=== PATIENT | female | born 1980 | race Caucasian/White ===

== ENCOUNTER 2016-07-11 08:05 | Emergency (ER) | payer OTHER ==
[2016-07-11] MEDS ORDERED: NS 0.9% 1000 ML* 2,000 ML IV ONE (09:47)
[2016-07-11] MEDS ORDERED: Ketorolac INJ* 30 MG/ML 1 ML VIAL IV PUSH ONE (09:47)
[2016-07-11 11:01] LABS: Hematocrit 40 % (35-47); Hemoglobin 13.4 g/dl (12.0-16.0); Mean Corpuscular HGB Conc 34 g/dl (31-36); Mean Corpuscular Hemoglobin 31 pg (27-31); Mean Corpuscular Volume 92 fL (80-97); Mean Platelet Volume 9 um3 (7.4-10.4); Red Blood Count 4.31 10^6/ul (4.0-5.4); Red Cell Distribution Width 13 % (10.5-15); White Blood Count 7.6 10^3/ul (3.5-10.8)
[2016-07-11 11:22] LABS: ALT 16 U/L (7-52); Albumin 3.9 g/dL (3.2-5.2); Alkaline Phosphatase 65 U/L (34-104); BUN/Creatinine Ratio 18.8 (8-20); Blood Urea Nitrogen 15 mg/dL (6-24); CO2 Carbon Dioxide 24 mmol/L (22-32); Calcium 8.7 mg/dL (8.6-10.3); Chloride 102 mmol/L (101-111); EGFR African American 105.6 (>60); EGFR Non-African American 82.1 (>60); Glucose 110 mg/dL (70-100); Sodium 133 mmol/L (133-145); Total Protein 6.9 g/dL (6.4-8.9)
[2016-07-11] MEDS ORDERED: Ondansetron INJ* 2 MG/ML VIAL IV ONE (13:07)
[2016-07-11] MEDS ORDERED: NS 0.9% 1000 ML* 1,000 ML IV ONE (13:08)
[2016-07-11] MEDS ORDERED: Ondansetron INJ* 2 MG/ML VIAL ONE ×2 (13:09→13:13)
[2016-07-11 15:46] LABS: Urine Bacteria Absent (Absent); Urine Bilirubin Negative (Negative); Urine Glucose Negative (Negative); Urine Nitrite Negative (Negative)
[2016-07-11] MEDS ORDERED: Meclizine TAB* 12.5 MG PO ONE (18:19)
[2016-07-11] MEDS ORDERED: Meclizine TAB* 12.5 MG ONE (18:20)
[2016-07-11 18:50] VITALS: BP 119/63
--- NOTE | 2016-08-08 10:40 | ED ---
Mehdi Manzo Matthew, scribed for Mansoor Yañez MD on 07/11/16 at 0952 . Influenza-Like Illness - HPI Summary HPI Summary: A 35 y/o female presents to the ED with influenza like symptoms for the past 3 days. Associated symptoms include dizziness, vomiting - 2x today, nausea, headache - 3 days, mild coughing, mild chest pain, rhinorrhea, diarrhea, lower back pain, fever - since 3 days ago, and body aches. The patient denies sore throat, abdominal pain, and urinary symptoms. The patient is currently on Bactrim and was seen by her PCP yesterday. The patient does not smoke or drink alcohol. Her nausea worsens laying down. - History of Current Complaint Chief Complaint: EDNauseaVomitDiarrh Time Seen by Provider: 07/11/16 08:22 Hx Obtained From: Patient Onset/Duration: Gradual Onset, Lasting Days - 3, Still Present Severity: Moderate Associated Signs & Symptoms: Fever, Myalgia, Cough, Nasal Congestion, Headache, Vomiting, Diarrhea - Allergy/Home Medications Allergies/Adverse Reactions: Allergies Allergy/AdvReac Type Severity Reaction Status Date / Time Amoxicillin Allergy Rash Verified 04/05/14 16:07 Doxycycline Allergy Vomiting Verified 04/05/14 16:07 Home Medications: Home Medications Ibuprofen TAB* [Motrin TAB* 800 MG] 800 mg PO TID PRN 07/11/16 [History Confirmed 07/11/16] Sulfamethox/Trimethoprim DS* [Bactrim DS 800/160 TAB*] 1 tab PO BID 07/11/16 [ History Confirmed 07/11/16] PMH/Surg Hx/FS Hx/Imm Hx Cardiovascular History: Reports: Hx Angina Denies: Hx Coronary Artery Disease, Hx Hypercholesterolemia, Hx Hypertension , Hx Myocardial Infarction, Hx Valvular Heart Disease Respiratory History: Denies: Hx Asthma, Hx Chronic Obstructive Pulmonary Disease (COPD) Infectious Disease History: No Infectious Disease History: Denies: Traveled Outside the [place] in Last 30 Days - Family History Known Family History: Positive: Cardiac Disease Family History: Father of [place] in mid 50's; mother has angina - Social History Alcohol Use: None Substance Use Type: Reports: None Smoking Status (MU): Never Smoked Tobacco Review of Systems Positive: Fever - since 3 days ago. Negative: Chills Eyes: Negative Negative: Erythema Positive: Nasal Discharge - Rhinorrhea. Negative: Sore Throat Cardiovascular: Negative Negative: Chest Pain Positive: Cough - mild Positive: Vomiting - 2x today, Diarrhea, Nausea. Negative: Abdominal Pain Genitourinary: Negative Negative: dysuria, hematuria Positive: Myalgia - body aches, lower back pain. Negative: Edema - pedal Skin: Negative Negative: Rash Positive: Headache - 3 days Psychological: Normal All Other Systems Reviewed And Are Negative: Yes Physical Exam Triage Information Reviewed: Yes Vital Signs On Initial Exam: Initial Vitals Temp Pulse Resp BP Pulse Ox 99.6 F 107 20 121/72 98 07/11/16 08:06 07/11/16 08:06 07/11/16 08:06 07/11/16 08:06 07/11/16 08:06 Vital Signs Reviewed: Yes Appearance: Positive: No Pain Distress, Well-Nourished Skin: Positive: Warm, Dry Head/Face: Positive: Other - Normocephalic; Atraumatic Eyes: Positive: Conjunctiva Clear Neck: Positive: No Lymphadenopathy, Other: - Full ROM; No JVD Respiratory/Lung Sounds: Positive: Other - Normal Effort; No Respiratory Distress. Negative: Rales, Stridor, Tracheal Deviation, Wheezes Cardiovascular: Positive: RRR, Other - Rhythm regular, rate normal, Heart sounds normal; Intact distal pulses; The pedal pulses are 2+ and symmetric. Radial pulses are 2+ and symmetric. Negative: Murmur Abdomen Description: Positive: Nontender, Soft, CVA Tenderness (R), CVA Tenderness (L), Other: - No Rebound. Negative: Distended, Guarding Bowel Sounds: Positive: Present Musculoskeletal: Negative: Edema Left, Edema Right Neurological: Positive: Alert, Oriented to Person Place, Time Psychiatric: Positive: Affect/Mood Appropriate Diagnostics - Vital Signs Vital Signs Temp Pulse Resp BP Pulse Ox 07/11/16 08:33 99.6 F 107 20 124/72 98 07/11/16 08:06 99.6 F 107 20 121/72 98 - Laboratory Result Diagrams: 07/11/16 10:49 07/11/16 10:30 Lab Statement: Any lab studies that have been ordered have been reviewed, and results considered in the medical decision making process. Re-Evaluation - Re-Evaluation First Eval Re-Evaluation Time: 17:23 Comment: No PO intake since arrival and she hasnt vomited since the Zofran was administered. Second Eval Re-Evaluation Time: 17:50 Change: Improved Comment: The patient is tolerating PO intake. Flu Symptom Course/Dx - Course Assessment/Plan: A 35 y/o female presents to the ED with influenza like symptoms for the past 3 days. Associated symptoms include dizziness, vomiting - 2x today, nausea, headache - 3 days, mild coughing, mild chest pain, rhinorrhea, diarrhea, lower back pain, fever - since 3 days ago, and body aches. The patient denies sore throat, abdominal pain, and urinary symptoms. Labs were reviewed. In the ED course, the patient was given Toradol, Antivert, 3L IV fluids, and Zofran. On re-evaluation the patient tolerated PO. She will be discharged home with PCP follow-up. - Diagnoses Provider Diagnoses: Vertigo, Gastroenteritis Discharge - Discharge Plan Condition: Stable Disposition: HOME Prescriptions: Meclizine TAB* [Antivert 12.5 TAB*] 25 mg PO Q8H #10 tab Ondansetron ODT TAB* [Zofran 4 MG Odt TAB*] 4 mg PO Q8H PRN #12 tab.odt PRN Reason: Pain Scale 6-10 Patient Education Materials: Meclizine (By mouth), Ondansetron (By mouth), Vertigo (ED), Gastroenteritis (ED) Forms: *Work Release Referrals: Session Marlo BRANDON [Primary Care Provider] - 07/14/16 Additional Instructions: Please follow-up with your primary care physician on Thursday. RETURN TO THE EMERGENCY DEPARTMENT FOR CHANGING OR WORSENING SYMPTOMS The documentation as recorded by the Mehdi velazquez Matthew accurately reflects the service I personally performed and the decisions made by me, Mansoor Yañez MD.
== END 2016-07-11 18:48 | disposition home or self-care (01) ==
LOC: ED 08:05
DX: R42 Dizziness and giddiness (principal); K52.9 Noninfective gastroenteritis and colitis, unspecified; R50.9 Fever, unspecified; M79.1 Myalgia; R05 Cough; R09.81 Nasal congestion; R51 Headache; R11.10 Vomiting, unspecified; R19.7 Diarrhea, unspecified
CPT/HCPCS: 36415; 80053; 81003; 81015; 85025; 87502; 96374; 96375; 99284; A9270-GY; J1885; J2405

== ENCOUNTER 2016-07-13 07:43 | Emergency (ER) | payer OTHER ==
[2016-07-13] MEDS ORDERED: Azithromycin TAB* 250 MG PO ONE (09:35)
--- NOTE | 2016-07-13 09:44 | ED ---
Throat Pain/Nasal Congestion - HPI Summary HPI Summary: 35 y/o female with no PMH presents with 7 days of sinus pain, headache, ear pain , sore throat, coughing, and mild fever. Seen by PCP last week, dx'd with sinus infection, started on Bactrim. After 2 doses, patient had N/V, d'cd medication without notifing PCP. SEen in ER for same symptoms with N/V. Dx'd with GI complaint. Currently no N/V, minimal dizziness with going from sitting to standing, headache throbbing in nature, located frontal and behind ears b/l, no neck pain/ stiffness. - History of Current Complaint Chief Complaint: EDFluSymptoms Time Seen by Provider: 07/13/16 09:17 Hx Obtained From: Patient, Family/Scene Shifter - mother Onset/Duration: Gradual Onset, Lasting Days, Worse Since - daily Severity: Moderate Associated Signs And Symptoms: Positive: Sinus Discomfort, Nasal Discharge - green/ yellow discharge Cough: Productive - Allergies/Home Medications Allergies/Adverse Reactions: Allergies Allergy/AdvReac Type Severity Reaction Status Date / Time Amoxicillin Allergy Rash Verified 07/13/16 07:45 Doxycycline Allergy Vomiting Verified 07/13/16 07:45 PMH/Surg Hx/FS Hx/Imm Hx Previously Healthy: Yes Cardiovascular History: Reports: Hx Angina Denies: Hx Coronary Artery Disease, Hx Hypercholesterolemia, Hx Hypertension , Hx Myocardial Infarction, Hx Valvular Heart Disease Respiratory History: Denies: Hx Asthma, Hx Chronic Obstructive Pulmonary Disease (COPD) Infectious Disease History: No Infectious Disease History: Denies: Traveled Outside the [place] in Last 30 Days - Family History Known Family History: Positive: None, Cardiac Disease Family History: Father of [place] in mid 50's; mother has angina - Social History Alcohol Use: None Substance Use Type: Reports: None Smoking Status (MU): Never Smoked Tobacco Review of Systems Positive: Fever, Chills, Fatigue Eyes: Negative Positive: Sore Throat, Ear Ache, Nasal Discharge Cardiovascular: Negative Positive: Cough Gastrointestinal: Negative Genitourinary: Negative Positive: Myalgia - generalized Skin: Negative Positive: Headache, Weakness Psychological: Normal All Other Systems Reviewed And Are Negative: Yes Physical Exam Triage Information Reviewed: Yes Vital Signs On Initial Exam: Initial Vitals Temp Pulse Resp BP Pulse Ox 100.6 F 101 20 112/70 98 07/13/16 07:45 07/13/16 07:45 07/13/16 07:45 07/13/16 07:45 07/13/16 07:45 Vital Signs Reviewed: Yes Appearance: Positive: Well-Nourished, Ill-Appearing - mild, Pain Distress - mild Skin: Positive: Warm, Skin Color Reflects Adequate Perfusion Head/Face: Positive: Normal Head/Face Inspection Eyes: Positive: EOMI, KUNAL, Conjunctiva Clear ENT: Positive: Pharyngeal erythema - mild erythema, no exudates, no swelling noted., TM bulging, TM dull, TM red - b/l bulging TMs with air/ fluids levels, purulent fluid behind TMs b/l, tm intact, erythema around TM, ear canal grossly normal b/l, + mastoid tenderness mild with deep palpation, no swelling, erythema noted. Dental: Positive: Cervical Lymphadenopathy - submandb. NO posterior LAD Neck: Positive: Supple, Nontender, Enlarged Nodes @ - subman Respiratory/Lung Sounds: Positive: Clear to Auscultation, Breath Sounds Present Cardiovascular: Positive: Normal, Tachycardia - mild, S1, S2 Abdomen Description: Positive: Nontender, Soft Psychiatric: Positive: Normal AVPU Assessment: Alert - Joanne Coma Scale Best Eye Response: 4 - Spontaneous Best Motor Response: 6 - Obeys Commands Best Verbal Response: 5 - Oriented Diagnostics - Vital Signs Vital Signs Temp Pulse Resp BP Pulse Ox 07/13/16 07:47 100.6 F 101 20 112/70 97 07/13/16 07:45 100.6 F 101 20 112/70 98 - Laboratory Lab Statement: Any lab studies that have been ordered have been reviewed, and results considered in the medical decision making process. EENT Course/Dx - Course Course Of Treatment: AOM and sinusitis, started on ABX, stressed importance to stay on ABX or call if develops symptoms while on them, follow up with PCP within 1 week for re-eval. Work note given, one dose [place] for pain while in ER. Mother present, agrees with pain. Dicussed mild tachy- encouraged drinking water which patient states able to do as opposed to starting IV for fluids, patient in agreement. - Differential Diagnoses Differential Diagnoses: Dental Abscess, Epiglottitis, Gingivitis, Otitis Externa , Otitis Media, Sinusitis, Tonsilitis, URI/Bronchitis - Diagnoses Provider Diagnoses: Sinusitis, Acute otitis media, bilateral Discharge - Discharge Plan Condition: Good Disposition: HOME Prescriptions: Azithromycin TAB* [Zithromax TAB (Z-GIAN) 250 mg #6 tabs] 250 mg PO DAILY #4 tab Ibuprofen TAB* [Motrin TAB* 800 MG] 800 mg PO TID PRN #30 dose PRN Reason: Pain/Inflammation Patient Education Materials: Sinusitis (ED) Forms: *Work Release Referrals: Marlo Carpenter [Primary Care Provider] - Additional Instructions: - Increase fluid intake - FOllow up with primary physician within 1-2 weeks - return to ER with increased pain, worse headache, neck pain, or increasing fever - Motrin/ Ibuprofen for pain - Azithromycin antibiotic given, take as directed
[2016-07-13] MEDS ORDERED: HYDROcodone/ACETAMIN 5-325 MG* 1 TAB PO ONE (10:09)
[2016-07-13 10:26] VITALS: BP 130/79
== END 2016-07-13 10:23 | disposition home or self-care (01) ==
LOC: ED 07:43
DX: J32.9 Chronic sinusitis, unspecified (principal); H66.93 Otitis media, unspecified, bilateral
CPT/HCPCS: 99282; A9270-GY

== ENCOUNTER 2016-10-23 13:07 | Emergency (ER) | payer OTHER ==
[2016-10-23] MEDS ORDERED: SCOP/HYOS/ATR/PB(NF) 10 ML UDC PO ONE (13:56)
--- NOTE | 2016-10-23 14:21 | RAD ---
Indication: 2 days burning chest pain. Comparison: February 22, 2016 Technique: Upright AP 1400 hours Report: Clear lungs and pleural spaces. Negative for pneumothorax. The heart, pulmonary vasculature, and mediastinal contours are unremarkable. Negative for free air beneath the diaphragm. Unremarkable osseous structures and soft tissue contours. IMPRESSION: No evidence for acute intrathoracic disease.
[2016-10-23 14:30] LABS: Hematocrit 41 % (35-47); Hemoglobin 13.9 g/dl (12.0-16.0); Mean Corpuscular HGB Conc 34 g/dl (31-36); Mean Corpuscular Hemoglobin 32 pg (27-31); Mean Corpuscular Volume 95 fL (80-97); Mean Platelet Volume 9 um3 (7.4-10.4); Red Blood Count 4.33 10^6/ul (4.0-5.4); Red Cell Distribution Width 13 % (10.5-15); White Blood Count 5.8 10^3/ul (3.5-10.8)
[2016-10-23] MEDS ORDERED: Lidocaine 2% VISCOUS* 15 ML UDC PO ONE (14:39)
[2016-10-23] MEDS ORDERED: Al Hydrox/Mg Hydrox/Simet LIQ* 30 ML UDC PO ONE (14:39)
[2016-10-23 14:57] LABS: Albumin 4.1 g/dL (3.2-5.2); BUN/Creatinine Ratio 16.7 (8-20); Calcium 9.2 mg/dL (8.6-10.3); EGFR African American 108.1 (>60); Globulin 3.3 g/dL (2-4); Potassium 3.9 mmol/L (3.5-5.0); Total Bilirubin 0.5 mg/dL (0.2-1.0); Total Protein 7.4 g/dL (6.4-8.9)
--- NOTE | 2016-10-23 15:28 | ED ---
HPI Chest Pain - HPI Summary HPI Summary: Patient presents with chest pain x 2 days which has been worsening. She describes the pain as burning in the epigastric area and radiates superiorly to the throat. She states she also has associated burning in the throat and denies any other radiation of the pain. The pain does not radiate to the arm or jaw or through to the back. She has never had pain like this before. She was worked up last year for chest pain, but states this feels different and there was no significant findings at that time. She is tearful on examination and states she is concerned over a cardiac issue since her father of an [place] at a young age of 56. Patient is obese, but has no other comorbidities of note. Denies other family history of cardiac problems. Denies personal history of cardiac issues. She states pain is intermittent and worse after eating. She notes to NSAID use daily x 3 weeks for ankle pain. Denies SOB, chest pressure, diaphoresis, fever, nausea, chills or sweats. She is very anxious on arrival to the ED. - History of Current Complaint Chief Complaint: EDChestPainROMI Time Seen by Provider: 10/23/16 13:18 Hx Obtained From: Patient Onset/Duration: Started Days Ago Timing: Intermittent Initial Severity: Moderate Current Severity: Moderate Pain Intensity: 6 Pain Scale Used: 0-10 Numeric Chest Pain Location: Discrete at:, Mid Sternal Chest Pain Radiates: Yes Chest Pain Radiates To:: Neck, Epigastric Character: Burning Aggravating Factor(s): Position, Recumbent Position Alleviating Factor(s): Nothing Associated Signs and Symptoms: Positive: Chest Pain Related History: Obesity - Risk Factors Pulmonary Embolism Risk Factors: Negative TAD Risk Factors: Negative AMI/ACS Risk Factors: Obesity, Family History - Allergy/Home Medications Allergies/Adverse Reactions: Allergies Allergy/AdvReac Type Severity Reaction Status Date / Time Amoxicillin Allergy Rash Verified 10/23/16 13:13 Doxycycline Allergy Vomiting Verified 10/23/16 13:13 PMH/Surg Hx/FS Hx/Imm Hx Previously Healthy: Yes Cardiovascular History: Reports: Hx Angina Denies: Hx Coronary Artery Disease, Hx Hypercholesterolemia, Hx Hypertension , Hx Myocardial Infarction, Hx Valvular Heart Disease Respiratory History: Denies: Hx Asthma, Hx Chronic Obstructive Pulmonary Disease (COPD) - Immunization History Hx Pertussis Vaccination: No Immunizations Up to Date: Unable to Obtain/Confirm Infectious Disease History: No Infectious Disease History: Denies: Traveled Outside the [place] in Last 30 Days - Family History Known Family History: Positive: None, Cardiac Disease Family History: Father of [place] in mid 50's; mother has angina - Social History Occupation: Employed Full-time Lives: With Family Alcohol Use: None Hx Substance Use: No Substance Use Type: Reports: None Hx Tobacco Use: No Smoking Status (MU): Never Smoked Tobacco Review of Systems Constitutional: Negative Eyes: Negative Positive: Chest Pain Respiratory: Negative Gastrointestinal: Negative Positive: no symptoms reported, see HPI Musculoskeletal: Negative Skin: Negative Neurological: Negative Positive: Anxious All Other Systems Reviewed And Are Negative: Yes Physical Exam Triage Information Reviewed: Yes Vital Signs On Initial Exam: Initial Vitals Temp Pulse Resp BP Pulse Ox 98.1 F 85 16 151/76 97 10/23/16 13:13 10/23/16 13:13 10/23/16 13:13 10/23/16 13:13 10/23/16 13:13 Vital Signs Reviewed: Yes Appearance: Positive: Well-Appearing, Well-Nourished Skin: Positive: Warm, Skin Color Reflects Adequate Perfusion Head/Face: Positive: Normal Head/Face Inspection Eyes: Positive: EOMI, KUNAL, Conjunctiva Clear Neck: Positive: Supple, No Lymphadenopathy Respiratory/Lung Sounds: Positive: Clear to Auscultation, Breath Sounds Present Cardiovascular: Positive: Normal, RRR, Pulses are Symmetrical in both Upper and Lower Extremities Musculoskeletal: Positive: Normal, Strength/ROM Intact Neurological: Positive: Sensory/Motor Intact, Alert, Oriented to Person Place, Time Psychiatric: Positive: Normal AVPU Assessment: Alert - Joanne Coma Scale Best Eye Response: 4 - Spontaneous Best Motor Response: 6 - Obeys Commands Best Verbal Response: 5 - Oriented Coma Scale Total: 15 Diagnostics - Vital Signs Vital Signs Temp Pulse Resp BP Pulse Ox 10/23/16 14:31 100 10/23/16 14:00 70 16 118/68 99 10/23/16 13:48 98.1 F 85 16 151/76 98 10/23/16 13:30 77 15 116/74 99 10/23/16 13:29 78 14 98 10/23/16 13:27 93/68 10/23/16 13:13 98.1 F 85 16 151/76 97 - Laboratory Lab Results: Lab Results 0810/23/16 10/23/16 Range/Units 14:10 14:10 14:10 WBC 5.8 (3.5-10.8) 10^3/ul RBC 4.33 (4.0-5.4) 10^6/ul Hgb 13.9 (12.0-16.0) g/dl Hct 41 (35-47) % MCV 95 (80-97) fL MCH 32 H (27-31) pg MCHC 34 (31-36) g/dl RDW 13 (10.5-15) % Plt Count 179 (150-450) 10^3/ul MPV 9 (7.4-10.4) um3 Neut % (Auto) 68.2 (38-83) % Lymph % (Auto) 19.8 L (25-47) % [place] % (Auto) 8.3 (1-9) % Eos % (Auto) 3.2 (0-6) % Baso % (Auto) 0.5 (0-2) % Absolute Neuts (auto) 3.9 (1.5-7.7) 10^3/ul Absolute Lymphs (auto) 1.1 (1.0-4.8) 10^3/ul Absolute Monos (auto) 0.5 (0-0.8) 10^3/ul Absolute Eos (auto) 0.2 (0-0.6) 10^3/ul Absolute Basos (auto) 0 (0-0.2) 10^3/ul Absolute Nucleated RBC 0.01 10^3/ul Nucleated RBC % 0.1 Sodium 136 (133-145) mmol/L Potassium 3.9 (3.5-5.0) mmol/L Chloride 103 (101-111) mmol/L Carbon Dioxide 28 (22-32) mmol/L Anion Gap 5 (2-11) mmol/L BUN 13 (6-24) mg/dL Creatinine 0.78 (0.51-0.95) mg/dL Est GFR ( Amer) 108.1 (>60) Est GFR (Non-Af Amer) 84.0 (>60) BUN/Creatinine Ratio 16.7 (8-20) Glucose 95 (70-100) mg/dL Lactic Acid 0.7 (0.5-2.0) mmol/L Calcium 9.2 (8.6-10.3) mg/dL Total Bilirubin 0.50 (0.2-1.0) mg/dL AST 14 (13-39) U/L ALT 13 (7-52) U/L Alkaline Phosphatase 65 (34-104) U/L CK-MB (CK-2) 3.2 (0.6-6.3) ng/mL Myoglobin 33.8 (14.3-65.8) ng/mL Troponin I 0.00 (<0.04) ng/mL Total Protein 7.4 (6.4-8.9) g/dL Albumin 4.1 (3.2-5.2) g/dL Globulin 3.3 (2-4) g/dL Albumin/Globulin Ratio 1.2 (1-3) Result Diagrams: 10/23/16 14:10 10/23/16 14:10 Lab Statement: Any lab studies that have been ordered have been reviewed, and results considered in the medical decision making process. Chest Pain Course/Dx - Course Course Of Treatment: Labs drawn. Trop 0.00. Chest xray negative. EKG shows normal sinus rhythm. Pain improved with GI cocktail in ED. She notes to significant use of NSAIDS and pain is worse after eating. Possibly a gastric ulcer d/t pain immediately after eating. Will treat according to protocol for GERD/gastric ulcer with 4 weeks 40mg omeprazole. Discontinue NSAIDS. Medications were reveiwed with patient. Encouarged to follow up with PCP or return to ED for worsening symptoms. Return precautions given. Patient understands and agrees with plan. Ok for discharge. D/t patient symptoms and 0.00 trop, unlikely cardiac pathology. She is encouraged to follow up with DR. Riggs if symptoms continue. - Chest Pain Differential Diagnosis/HQI/PQRI: ACS, Angina, Chest Wall, Other: - NSAID use - Diagnoses Provider Diagnoses: Acute peptic ulcer Discharge - Discharge Plan Condition: Stable Disposition: HOME Prescriptions: Al Hydrox/Mg Hydrox/Simet LIQ* [Maalox Plus*] 30 ml PO Q4H PRN #360 udc PRN Reason: Pain Omeprazole 40 mg PO DAILY #30 cap Patient Education Materials: Diet for Stomach Ulcers and Gastritis (ED), Gastroesophageal Reflux Disease (ED) Referrals: Session Marlo BRANDON [Primary Care Provider] - David Riggs MD [Medical Doctor] - Additional Instructions: Follow up with Dr. Riggs as needed Discontinue NSAIDS Omeprazole daily for 30 days Take this medication at least 30 minutes before a meal Maalox for breakthrough GERD symptoms If anything becomes worse, return to the ED
[2016-10-23 15:57] VITALS: BP 112/68
== END 2016-10-23 15:56 | disposition home or self-care (01) ==
LOC: ED 13:07
DX: K27.3 Acute peptic ulcer, site unspecified, without hemorrhage or perforation (principal); R07.9 Chest pain, unspecified; F41.9 Anxiety disorder, unspecified
CPT/HCPCS: 36415; 71010; 80053; 82553; 83605; 83874; 84484; 85025; 93005; 99283; A9270-GY

== ENCOUNTER 2016-10-28 19:33 | Emergency (ER) | payer OTHER ==
[2016-10-28] MEDS ORDERED: Ondansetron INJ* 2 MG/ML VIAL IV ONE (20:44)
[2016-10-28] MEDS ORDERED: Morphine INJ* 2 MG/ML 1 ML SYRINGE IV ONE (20:44)
[2016-10-28] MEDS ORDERED: NS 0.9% 1000 ML* 1,000 ML IV ONE ×2 (20:44→22:14)
[2016-10-28 20:56] LABS: Hematocrit 49 % (35-47); Hemoglobin 16.3 g/dl (12.0-16.0); Mean Corpuscular HGB Conc 34 g/dl (31-36); Mean Corpuscular Hemoglobin 32 pg (27-31); Mean Corpuscular Volume 94 fL (80-97); Mean Platelet Volume 9 um3 (7.4-10.4); Red Blood Count 5.15 10^6/ul (4.0-5.4); Red Cell Distribution Width 13 % (10.5-15); White Blood Count 14.7 10^3/ul (3.5-10.8)
--- NOTE | 2016-10-28 21:05 | ED ---
Raz Manzo SooYoung, scribed for Sree Fan MD on 10/28/16 at 2043 . GI/ HPI - HPI Summary HPI Summary: A 36 y/o F presents to ED with known UTI with c/o possible allergic reaction to Bactrim. Pt saw her PCP yesterday, dx: UTI from UA and was given Bactrim. She took a dose of Bactrim this AM and immediately had n/v, SOB. She called PCP who recommended she take Benadryl and switched her to Azithromycin. She states she is unsure if she has an allergen to Sulfa drugs. PCP is BRIAN Zhao. - History of Current Complaint Chief Complaint: EDNauseaVomitDiarrh Time Seen by Provider: 10/28/16 20:39 Stated Complaint: POSS MEDICATION REACTION-DX UTI,WORSENING SYMPTOMS Hx Obtained From: Patient, Family/Service Desk Associate - Onset/Duration: Started Hours Ago, Still Present Timing: Constant Severity: Moderate Current Severity: Moderate Pain Intensity: 9 - out of 10 Associated Signs and Symptoms: Positive: Nausea, Vomiting, UTI Symptoms - known UTI, Other: - pos: SOB - Allergy/Home Medications Allergies/Adverse Reactions: Allergies Allergy/AdvReac Type Severity Reaction Status Date / Time Amoxicillin Allergy Rash Verified 10/23/16 13:13 Doxycycline Allergy Vomiting Verified 10/23/16 13:13 Sulfamethoxazole Allergy Shortness Verified 10/28/16 19:40 w/Trimethoprim of Breath [From Bactrim] PMH/Surg Hx/FS Hx/Imm Hx Previously Healthy: No Cardiovascular History: Reports: Hx Angina Denies: Hx Coronary Artery Disease, Hx Hypercholesterolemia, Hx Hypertension , Hx Myocardial Infarction, Hx Valvular Heart Disease Respiratory History: Denies: Hx Asthma, Hx Chronic Obstructive Pulmonary Disease (COPD) Infectious Disease History: No Infectious Disease History: Denies: Traveled Outside the [place] in Last 30 Days - Family History Known Family History: Positive: Cardiac Disease Family History: Father of [place] in mid 50's; mother has angina - Social History Occupation: Unemployed - HOMEMAKER Lives: With Family Alcohol Use: None Hx Substance Use: No Substance Use Type: Reports: None Hx Tobacco Use: No Smoking Status (MU): Never Smoked Tobacco Review of Systems Positive: Shortness Of Breath Positive: Vomiting, Nausea Positive: other - pos: known UTI All Other Systems Reviewed And Are Negative: Yes Physical Exam Triage Information Reviewed: Yes Vital Signs On Initial Exam: Initial Vitals Temp Pulse Resp BP Pulse Ox 97.9 F 116 18 103/58 93 10/28/16 19:35 10/28/16 19:35 10/28/16 19:35 10/28/16 19:35 10/28/16 19:35 Vital Signs Reviewed: Yes Appearance: Positive: Pain Distress - mild discomfort, Obese Skin: Positive: Warm Head/Face: Positive: Normal Head/Face Inspection Eyes: Positive: KUNAL ENT: Positive: Hearing grossly normal Neck: Positive: Supple Respiratory/Lung Sounds: Positive: Breath Sounds Present Cardiovascular: Positive: RRR Abdomen Description: Positive: No Organomegaly, Soft, Other: - mild diffuse an= bd tenderness. Negative: CVA Tenderness (R), CVA Tenderness (L), Distended, Guarding Bowel Sounds: Positive: Present Musculoskeletal: Positive: Strength/ROM Intact Neurological: Positive: Alert, Oriented to Person Place, Time, Normal Gait Psychiatric: Positive: Affect/Mood Appropriate - [place] Coma Scale Coma Scale Total: 15 Diagnostics - Vital Signs Vital Signs Temp Pulse Resp BP Pulse Ox 10/28/16 20:26 112 14 95 10/28/16 20:25 87/56 10/28/16 20:24 98.1 F 104 14 87/56 96 10/28/16 19:35 97.9 F 116 18 103/58 93 - Laboratory Lab Results: Lab Results 10/28/16 Range/Units 20:40 WBC 14.7 H (3.5-10.8) 10^3/ul RBC 5.15 (4.0-5.4) 10^6/ul Hgb 16.3 H (12.0-16.0) g/dl Hct 49 H (35-47) % MCV 94 (80-97) fL MCH 32 H (27-31) pg MCHC 34 (31-36) g/dl RDW 13 (10.5-15) % Plt Count 226 (150-450) 10^3/ul MPV 9 (7.4-10.4) um3 Neut % (Auto) 90.5 H (38-83) % Lymph % (Auto) 2.3 L (25-47) % [place] % (Auto) 4.2 (1-9) % Eos % (Auto) 2.9 (0-6) % Baso % (Auto) 0.1 (0-2) % Absolute Neuts (auto) 13.3 H (1.5-7.7) 10^3/ul Absolute Lymphs (auto) 0.3 L (1.0-4.8) 10^3/ul Absolute Monos (auto) 0.6 (0-0.8) 10^3/ul Absolute Eos (auto) 0.4 (0-0.6) 10^3/ul Absolute Basos (auto) 0 (0-0.2) 10^3/ul Absolute Nucleated RBC 0.01 10^3/ul Nucleated RBC % 0.1 Result Diagrams: 10/28/16 20:40 10/28/16 20:40 Lab Statement: Any lab studies that have been ordered have been reviewed, and results considered in the medical decision making process. Re-Evaluation - Re-Evaluation 1 Re-Evaluation Time: 00:51 Change: Improved Comment: Discussing results and dispo with pt. Pt voiced understanding. GIGU Course/Dx - Course Course Of Treatment: Pt is a 36 y/o F presenting with known UTI with c/o possible allergic reaction to Bactrim. Pt saw her PCP yesterday, dx: UTI from UA and was given Bactrim. She took a dose of Bactrim and immediately had n/v, SOB. She called PCP who recommended she take Benadryl and switched her to Azithromycin. She states she is unsure if she has an allergen to Sulfa drugs. PCP is BRIAN Zhao. Pt given fluids, Morphine, Zofran, Reglan, Levaquin in ED. Lactic acid is 2.2. CRP is WNL. Glucose is elevated. UA results show 2+ protein, 1+ ketones, 1+ leukocyte esterase, 3+ WBC, 1+ bacteria, specific gravity is 1.032, hyaline casts present, ascorbic acid present, squamous epithelia present. Will D/C home with Levaquin to f/u with PCP. - Diagnoses Provider Diagnoses: UTI (urinary tract infection) Discharge - Discharge Plan Condition: Improved Disposition: HOME Prescriptions: Levofloxacin TAB* [Levaquin TAB*] 250 mg PO DAILY #7 tab Patient Education Materials: Levofloxacin (By mouth), Urinary Tract Infection in Women (ED) Referrals: Session Marlo BRANDON [Primary Care Provider] - 2 Days Additional Instructions: Follow up with your primary care provider in the next two days. Please return to the ED if you experience new or worsening symptoms. The documentation as recorded by the Raz velazquez SooYoung accurately reflects the service I personally performed and the decisions made by me, Sree Fan MD.
[2016-10-28 21:08] LABS: ALT 13 U/L (7-52); AST 12 U/L (13-39); Albumin 3.6 g/dL (3.2-5.2); Alkaline Phosphatase 52 U/L (34-104); Anion Gap 9 mmol/L (2-11); BUN/Creatinine Ratio 14.3 (8-20); Blood Urea Nitrogen 26 mg/dL (6-24); C Reactive Protein < 1.00 mg/L (< 5.00); CO2 Carbon Dioxide 26 mmol/L (22-32); Calcium 8.6 mg/dL (8.6-10.3); Chloride 98 mmol/L (101-111); EGFR African American 40.7 (>60); EGFR Non-African American 31.6 (>60); Globulin 2.8 g/dL (2-4); Glucose 156 mg/dL (70-100); Lipase < 10 U/L (11.0-82.0); Potassium 4.2 mmol/L (3.5-5.0); Sodium 133 mmol/L (133-145); Total Protein 6.4 g/dL (6.4-8.9)
[2016-10-28 21:26] LABS: Magnesium 1.6 mg/dL (1.9-2.7)
[2016-10-28 22:43] LABS: Urine Bacteria 1+ (Absent); Urine Bilirubin Negative (Negative); Urine Glucose Negative (Negative); Urine Nitrite Negative (Negative)
[2016-10-28] MEDS ORDERED: Metoclopramide IV* 5 MG/ML 2 ML VIAL IV ONE (22:46)
[2016-10-28] MEDS ORDERED: Levofloxacin 250 MG IVPREMX(*) 250 MG/50 ML BAG IVPB ONE (22:46)
[2016-10-29 01:13] VITALS: BP 106/52
== END 2016-10-29 01:19 | disposition home or self-care (01) ==
LOC: ED 19:33
DX: N39.0 Urinary tract infection, site not specified (principal); R11.2 Nausea with vomiting, unspecified; R06.02 Shortness of breath
CPT/HCPCS: 36415; 80053; 81003; 81015; 83605; 83690; 83735; 85025; 86140; 87077; 87086; 96374; 96375; 99283; J1956; J2270; J2405; J2765

== ENCOUNTER 2016-10-29 05:03 | Emergency (ER) | payer OTHER ==
[2016-10-29] MEDS ORDERED: NS 0.9% 1000 ML* 1,000 ML IV ONE (05:57)
[2016-10-29] MEDS ORDERED: Metoclopramide IV* 5 MG/ML 2 ML VIAL IV ONE (05:57)
--- NOTE | 2016-10-29 06:56 | ED ---
Raz Manzo SooYoung, scribed for Sree Fan MD on 10/29/16 at 0557 . Abdominal Pain/Female - HPI Summary HPI Summary: A 36 y/o F presents to ED with known UTI c/o severe abd pain radiating to her back. Pt was seen in ED last night and d/c home with Levaquin to f/u with her PCP. Pt returned because the abd pain is too great. She states she "can't take it anymore." Associated sx: vomiting. - History of Current Complaint Chief Complaint: EDAbdPain Stated Complaint: FEVER/ABD PAIN Hx Obtained From: Patient, Family/Programmer Business - present, Medical Records Onset/Duration: Still Present Timing: Constant Severity Currently: Severe Pain Intensity: 10 Pain Scale Used: 0-10 Numeric Location: Diffuse Radiates: Yes Radiates to: Back Associated Signs and Symptoms: Positive: Vomiting Allergies/Adverse Reactions: Allergies Allergy/AdvReac Type Severity Reaction Status Date / Time Amoxicillin Allergy Rash Verified 10/29/16 07:30 Doxycycline Allergy Vomiting Verified 10/29/16 07:30 Sulfamethoxazole Allergy Shortness Verified 10/29/16 07:30 w/Trimethoprim of Breath [From Bactrim] PMH/Surg Hx/FS Hx/Imm Hx Previously Healthy: No Cardiovascular History: Reports: Hx Angina Denies: Hx Coronary Artery Disease, Hx Hypercholesterolemia, Hx Hypertension , Hx Myocardial Infarction, Hx Valvular Heart Disease Respiratory History: Denies: Hx Asthma, Hx Chronic Obstructive Pulmonary Disease (COPD) Infectious Disease History: No Infectious Disease History: Denies: Traveled Outside the [place] in Last 30 Days - Family History Known Family History: Positive: Cardiac Disease, Renal Disease, Other - neg: [place] Family History: Father of [place] in mid 50's; mother has angina - Social History Occupation: Unemployed Lives: With Family Alcohol Use: None Hx Substance Use: No Substance Use Type: Reports: None Hx Tobacco Use: No Smoking Status (MU): Never Smoked Tobacco Review of Systems Negative: Fever Positive: Abdominal Pain, Vomiting All Other Systems Reviewed And Are Negative: Yes Physical Exam Triage Information Reviewed: Yes Vital Signs On Initial Exam: Initial Vitals Temp Pulse Resp BP Pulse Ox 98 F 103 20 96/62 96 10/29/16 05:05 10/29/16 05:05 10/29/16 05:05 10/29/16 05:05 10/29/16 05:05 Vital Signs Reviewed: Yes Appearance: Positive: Well-Appearing, Pain Distress - mild abd discomfort Skin: Positive: Warm Head/Face: Positive: Normal Head/Face Inspection Eyes: Positive: KUNAL ENT: Positive: Hearing grossly normal Neck: Positive: Supple Respiratory/Lung Sounds: Positive: Breath Sounds Present Cardiovascular: Positive: RRR Abdomen Description: Positive: Soft, Other: - mild diffuse abs tyenserness Bowel Sounds: Positive: Present - [place] Coma Scale Coma Scale Total: 15 Diagnostics - Vital Signs Vital Signs Temp Pulse Resp BP Pulse Ox 10/29/16 05:05 98 F 103 20 96/62 96 - Laboratory Result Diagrams: 10/29/16 09:52 10/29/16 09:52 Lab Statement: Any lab studies that have been ordered have been reviewed, and results considered in the medical decision making process. Abdominal Pain Fem Course/Dx - Course Course Of Treatment: Pt is a 36 y/o F with known UTI c/o severe abd pain. Pt was seen in ED last night and d/c home with Tiffany to f/u with her PCP. Pt returned because the abd pain is too great. She states she "can't take it anymore." Associated sx: vomiting. Pt given Reglan, fluids in ED. Pt is SO to Dr. Singh at shift change pending CT results. - Diagnoses Provider Diagnoses: UTI (urinary tract infection), Cystitis Discharge - Discharge Plan Condition: Stable Disposition: HOME Discharge Disposition Comment: SO to Dr. Singh at shift change, pending CT results Prescriptions: Naproxen TAB* [Naprosyn 250 mg TAB*] 500 mg PO Q8H PRN #20 tab PRN Reason: Pain Ondansetron TAB* [Zofran 4 MG Tab*] 4 mg PO Q6H PRN #10 tab PRN Reason: Vomiting Phenazopyridine TAB* [Pyridium 100 mg TAB*] 100 mg PO TID #9 tab Patient Education Materials: Urinary Tract Infection in Women (ED) Referrals: Session Marlo BRANDON [Primary Care Provider] - 3 Days The documentation as recorded by the Raz velazquez SooYoung accurately reflects the service I personally performed and the decisions made by me, Sree Fan MD.
[2016-10-29] MEDS ORDERED: Morphine INJ* 2 MG/ML 1 ML SYRINGE IV ONE (07:12)
[2016-10-29] MEDS ORDERED: Iodixanol* (CONTRAST) 320 MG/ML 100 ML SDV IV ONE (08:19)
--- NOTE | 2016-10-29 09:36 | RAD ---
CLINICAL HISTORY: Abdominal pain COMPARISON: None TECHNIQUE: Multiple contiguous axial CT scans were obtained of the abdomen and pelvis after the administration of intravenous contrast. Coronal and sagittal multiplanar reformations are submitted for review. Oral contrast was administered. Delayed images were obtained through the abdomen and pelvis. FINDINGS: LUNG BASES: The lung bases are clear. LIVER: The liver measures 21 cm in long axis. BILE DUCTS: There is no intrahepatic or extrahepatic biliary dilatation. GALLBLADDER: The gallbladder is normal, without pericholecystic inflammatory change. PANCREAS: The pancreas is normal, without mass or ductal dilatation. SPLEEN: Normal in size and appearance. UPPER GI TRACT: Evaluation of the gastrointestinal tract is limited by incomplete gastric distention. The upper GI tract is unremarkable. SMALL BOWEL AND MESENTERY: The small bowel is normal in contour, course, and caliber. There is no obstruction or dilatation. COLON: The colon is normal in contour, course, caliber. There is no pericolonic inflammatory change. ADRENALS: Normal bilaterally. KIDNEYS: The kidneys are normal in shape, size, contour, and axis. There is no hydronephrosis or nephrolithiasis. BLADDER: There is mild thickening of the bladder wall. PELVIC ORGANS: The uterus and adnexa are grossly normal for technique. AORTA: The aorta is normal. IVC: Unremarkable LYMPH NODES: There is no lymphadenopathy by size criteria. ABDOMINAL WALL: There is diastasis recti with a small fat-containing umbilical hernia BONES AND SOFT TISSUES: Unremarkable OTHER: None IMPRESSION: HEPATOMEGALY. BLADDER WALL THICKENING WHICH CAN BE SEEN WITH CYSTITIS
[2016-10-29] MEDS ORDERED: Ketorolac INJ* 30 MG/ML 1 ML VIAL IV PUSH ONE (09:43)
[2016-10-29 10:04] LABS: Hematocrit 38 % (35-47); Hemoglobin 12.8 g/dl (12.0-16.0); Mean Corpuscular HGB Conc 34 g/dl (31-36); Mean Corpuscular Hemoglobin 32 pg (27-31); Mean Corpuscular Volume 94 fL (80-97); Mean Platelet Volume 9 um3 (7.4-10.4); Red Cell Distribution Width 13 % (10.5-15); White Blood Count 8.8 10^3/ul (3.5-10.8)
[2016-10-29 10:06] LABS: Urine Bacteria Absent (Absent); Urine Bilirubin Negative (Negative); Urine Glucose Negative (Negative); Urine Nitrite Negative (Negative)
[2016-10-29 10:09] VITALS: BP 101/62
[2016-10-29] MEDS ORDERED: Phenazopyridine TAB* 100 MG PO ONE (10:27)
[2016-10-29 10:28] LABS: Albumin 2.9 g/dL (3.2-5.2); BUN/Creatinine Ratio 19.8 (8-20); Calcium 7.4 mg/dL (8.6-10.3); EGFR African American 90.5 (>60); EGFR Non-African American 70.4 (>60); Globulin 2.3 g/dL (2-4); Potassium 3.8 mmol/L (3.5-5.0); Total Bilirubin 0.4 mg/dL (0.2-1.0); Total Protein 5.2 g/dL (6.4-8.9)
[2016-10-29 10:32] LABS: Benzodiazepine Urine Screen None Detected (None Detect)
== END 2016-10-29 10:43 | disposition home or self-care (01) ==
LOC: ED 05:03
DX: N39.0 Urinary tract infection, site not specified (principal); N30.90 Cystitis, unspecified without hematuria; R11.10 Vomiting, unspecified; R10.9 Unspecified abdominal pain
CPT/HCPCS: 36415; 74177; 80053; 80307; 81003; 85025; 99283; A9270-GY; J1885; J2270; J2765; Q9967

== ENCOUNTER 2016-10-30 06:55 | Emergency (ER) | payer OTHER ==
[2016-10-30] MEDS ORDERED: NS 0.9% 1000 ML* 1,000 ML IV ONE (07:18)
[2016-10-30] MEDS ORDERED: Ondansetron INJ* 2 MG/ML VIAL IV ONE (07:18)
[2016-10-30] MEDS ORDERED: Ketorolac INJ* 30 MG/ML 1 ML VIAL IV ONE (07:18)
[2016-10-30 07:41] LABS: Add Diff/Slide Review? Slide Review Added; Comments Flag Yes; Hematocrit 45 % (35-47); Hemoglobin 14.9 g/dl (12.0-16.0); Mean Corpuscular HGB Conc 34 g/dl (31-36); Mean Corpuscular Hemoglobin 32 pg (27-31); Mean Corpuscular Volume 95 fL (80-97); Mean Platelet Volume 9 um3 (7.4-10.4); Red Blood Count 4.66 10^6/ul (4.0-5.4); Red Cell Distribution Width 13 % (10.5-15); White Blood Count 6.7 10^3/ul (3.5-10.8)
[2016-10-30 07:52] LABS: ALT < 3 U/L (7-52); AST 9 U/L (13-39); Albumin 3.2 g/dL (3.2-5.2); Alkaline Phosphatase 40 U/L (34-104); BUN/Creatinine Ratio 12.6 (8-20); Blood Urea Nitrogen 12 mg/dL (6-24); C Reactive Protein 46.97 mg/L (< 5.00); Calcium 8.4 mg/dL (8.6-10.3); Chloride 104 mmol/L (101-111); EGFR African American 86.1 (>60); EGFR Non-African American 66.9 (>60); Globulin 2.6 g/dL (2-4); Glucose 119 mg/dL (70-100); Lipase < 10 U/L (11.0-82.0); Potassium 3.8 mmol/L (3.5-5.0); Sodium 135 mmol/L (133-145); Total Protein 5.8 g/dL (6.4-8.9)
[2016-10-30 08:23] LABS: Anion Gap 6 mmol/L (2-11); CO2 Carbon Dioxide 25 mmol/L (22-32)
[2016-10-30 09:59] LABS: EBV Response NO
[2016-10-30] MEDS ORDERED: Metoclopramide IV* 5 MG/ML 2 ML VIAL IV ONE (10:32)
[2016-10-30 10:34] LABS: Urine Bacteria Absent (Absent)
[2016-10-30 11:15] LABS: Mono Internal Control QC Line Present
[2016-10-30 11:16] LABS: Manual Entry Verification CAS0014
[2016-10-30 11:54] VITALS: BP 99/56
--- NOTE | 2016-10-30 18:49 | ED ---
Florencio Manzo Thomas, scribed for Phillip Singh MD on 10/30/16 at 0804 . Complex/Multi-Sys Presentation - HPI Summary HPI Summary: The pt is a 36 y/o F presenting to the ED c/o diffuse itchiness and throat weakness that began two hours ago. She rates her pain level 7/10. The pain is aggravated and alleviated by nothing. Pt additionally c/o nausea, vomiting, and vaginal bleeding (more than her normal period). PMHx: ovarian cyst, angina. PSHx : tubal ligation. SHx: no alcohol, no drugs, no smoking. FHx: cardiac disease, renal disease. This is the fifth time that she has been a patient in the ED for the same complaint. She reports that she has been taking her medications as directed. She is menstruating right now and describes the menstrual flow as heavier than normal. - History Of Current Complaint Chief Complaint: EDGeneral Time Seen by Provider: 10/30/16 07:21 Hx Obtained From: Patient, Family/Veterinary Pharmacologist - mother in room Onset/Duration: Lasting Hours - 2 hours, Still Present Timing: Constant Aggravating Factor(s): Nothing Alleviating Factor(s): Nothing Associated Signs And Symptoms: Positive: Nausea, Vomiting, Other - POS: diffuse itchiness, "throat weakness", vaginal bleeding Related History: Other - Many recent ED visits - Allergies/Home Medications Allergies/Adverse Reactions: Allergies Allergy/AdvReac Type Severity Reaction Status Date / Time Amoxicillin Allergy Rash Verified 10/29/16 07:30 Doxycycline Allergy Vomiting Verified 10/29/16 07:30 Sulfamethoxazole Allergy Shortness Verified 10/29/16 07:30 w/Trimethoprim of Breath [From Bactrim] PMH/Surg Hx/FS Hx/Imm Hx Previously Healthy: No Endocrine/Hematology History: Denies: Hx Diabetes Cardiovascular History: Reports: Hx Angina Denies: Hx Coronary Artery Disease, Hx Hypercholesterolemia, Hx Hypertension , Hx Myocardial Infarction, Hx Valvular Heart Disease Respiratory History: Denies: Hx Asthma, Hx Chronic Obstructive Pulmonary Disease (COPD) Infectious Disease History: No Infectious Disease History: Denies: Traveled Outside the [place] in Last 30 Days - Family History Known Family History: Positive: Cardiac Disease, Renal Disease, Other - neg: [place] Family History: Father of [place] in mid 50's; mother has angina - Social History Alcohol Use: None Hx Substance Use: No Substance Use Type: Reports: None Hx Tobacco Use: No Smoking Status (MU): Never Smoked Tobacco Review of Systems Negative: Fever Positive: Other - POS: "throat weakness" Positive: Vomiting, Nausea Positive: other - POS: vaginal bleeding (more than her normal period) Positive: Other - POS: diffuse itchiness All Other Systems Reviewed And Are Negative: Yes Physical Exam - Summary Physical Exam Summary: VITAL SIGNS: Reviewed. GENERAL: ~Patient is a well-developed and nourished female who is lying comfortable in the stretcher. ~Patient is not in any acute respiratory distress. HEAD AND FACE: No signs of trauma. ~No ecchymosis, hematomas or skull depressions. No sinus tenderness. EYES: PERRLA, EOMI x 2, No injected conjunctiva, no nystagmus. EARS: Hearing grossly intact. Ear canals and tympanic membranes are within normal limits. MOUTH: Oropharynx within normal limits. NECK: Supple, trachea is midline, no adenopathy, no JVD, no carotid bruit, no c- spine tenderness, neck with full ROM. CHEST: Symmetric, no tenderness at palpation LUNGS: Clear to auscultation bilaterally. No wheezing or crackles. CVS: Regular rate and rhythm, S1 and S2 present, no murmurs or gallops appreciated. ABDOMEN: Soft, non-tender. No signs of distention. No rebound no guarding, and no masses palpated. Bowel sounds are normal. EXTREMITIES: FROM in all major joints, no edema, no cyanosis or clubbing. NEURO: Alert and oriented x 3. No acute neurological deficits. Speech is normal and follows commands. SKIN: Dry and warm Triage Information Reviewed: Yes Vital Signs On Initial Exam: Initial Vitals Temp Pulse Resp BP Pulse Ox 97.6 F 104 20 105/81 95 10/30/16 06:59 10/30/16 06:59 10/30/16 06:59 10/30/16 06:59 10/30/16 06:59 Vital Signs Reviewed: Yes - [place] Coma Scale Coma Scale Total: 15 Diagnostics - Vital Signs Vital Signs Temp Pulse Resp BP Pulse Ox 10/30/16 07:10 98.4 F 89 22 113/42 94 10/30/16 06:59 97.6 F 104 20 105/81 95 - Laboratory Lab Results: Lab Results 0810/30/16 10/30/16 Range/Units 07:31 07:31 07:31 WBC 6.7 (3.5-10.8) 10^3/ul RBC 4.66 (4.0-5.4) 10^6/ul Hgb 14.9 (12.0-16.0) g/dl Hct 45 (35-47) % MCV 95 (80-97) fL MCH 32 H (27-31) pg MCHC 34 (31-36) g/dl RDW 13 (10.5-15) % Plt Count 202 (150-450) 10^3/ul MPV 9 (7.4-10.4) um3 Neut % (Auto) 77.2 (38-83) % Lymph % (Auto) 9.3 L (25-47) % [place] % (Auto) 4.3 (1-9) % Eos % (Auto) 5.5 (0-6) % Baso % (Auto) 3.7 H (0-2) % Absolute Neuts (auto) 5.2 (1.5-7.7) 10^3/ul Absolute Lymphs (auto) 0.6 L (1.0-4.8) 10^3/ul Absolute Monos (auto) 0.3 (0-0.8) 10^3/ul Absolute Eos (auto) 0.4 (0-0.6) 10^3/ul Absolute Basos (auto) 0.3 H (0-0.2) 10^3/ul Absolute Nucleated RBC 0 10^3/ul Nucleated RBC % 0 Sodium 135 (133-145) mmol/L Potassium 3.8 (3.5-5.0) mmol/L Chloride 104 (101-111) mmol/L Carbon Dioxide Pending Anion Gap Pending BUN 12 (6-24) mg/dL Creatinine 0.95 (0.51-0.95) mg/dL Est GFR ( Amer) 86.1 (>60) Est GFR (Non-Af Amer) 66.9 (>60) BUN/Creatinine Ratio 12.6 (8-20) Glucose 119 H (70-100) mg/dL Lactic Acid 1.2 (0.5-2.0) mmol/L Calcium 8.4 L (8.6-10.3) mg/dL Total Bilirubin 0.50 (0.2-1.0) mg/dL AST 9 L (13-39) U/L ALT < 3 L (7-52) U/L Alkaline Phosphatase 40 (34-104) U/L C-Reactive Protein 46.97 H (< 5.00) mg/L Total Protein 5.8 L (6.4-8.9) g/dL Albumin 3.2 (3.2-5.2) g/dL Globulin 2.6 (2-4) g/dL Albumin/Globulin Ratio 1.2 (1-3) Lipase < 10 L (11.0-82.0) U/L Beta HCG, Quant < 0.60 mIU/mL Result Diagrams: 10/30/16 07:31 10/30/16 07:31 Lab Statement: Any lab studies that have been ordered have been reviewed, and results considered in the medical decision making process. Complex Multi-Symp Course/Dx Assessment/Plan: The pt is a 36 y/o F presenting to the ED c/o diffuse itchiness and throat weakness that began two hours ago. She rates her pain level 7/10. The pain is aggravated and alleviated by nothing. Pt additionally c/ o nausea, vomiting, and vaginal bleeding (more than her normal period). PMHx: ovarian cyst, angina. PSHx: tubal ligation. SHx: no alcohol, no drugs, no smoking. FHx: cardiac disease, renal disease. This is the fifth time that she has been a patient in the ED for the same complaint. She reports that she has been taking her medications as directed. She is menstruating right now and describes the menstrual flow as heavier than normal. Bloodwork is without any significant abnormalities except glucose 119, calcium 8.4, and CRP 46.9. The test was negative. A UA test was not done because the patient is on her menstrual cycle and the sample was red. [place] screen and rapid strep were negative. In the ED course, the patient was given IV fluids for rehydration and was given Zofran and Reglan for N/V and Toradol for the pain. After these medications, the patients symptoms improved and she is feeling much better. Therefore, the patient will be discharged home with follow up with her PCP. - Diagnoses Differential Diagnoses/HQI/PQRI: Urinary Tract Infection - constipation, sepsis , menses, strep pharyngitis, infectious mononucleosis, Other Provider Diagnoses: Menses, Nausea & vomiting Discharge - Discharge Plan Condition: Stable Disposition: HOME Prescriptions: Metoclopramide TAB* [Reglan TAB*] 10 mg PO Q8H PRN #12 tab PRN Reason: Vomiting Patient Education Materials: Acute Nausea and Vomiting (ED) Referrals: Session Marlo BRANDON [Primary Care Provider] - 3 Days The documentation as recorded by the Florencio velazquez Thomas accurately reflects the service I personally performed and the decisions made by Francisco kulkarni Walter, MD.
== END 2016-10-30 11:53 | disposition home or self-care (01) ==
LOC: ED 06:55
DX: N94.89 Other specified conditions associated with female genital organs and menstrual cycle (principal); R11.2 Nausea with vomiting, unspecified; N93.9 Abnormal uterine and vaginal bleeding, unspecified
CPT/HCPCS: 36415; 80053; 81003; 81015; 83605; 83690; 84702; 85025; 86140; 86308; 87651; 96374; 96375; 99282; J1885; J2405; J2765

== ENCOUNTER 2018-02-25 22:23 | Emergency (ER) | payer OTHER ==
--- NOTE | 2018-02-26 01:25 | UC ---
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 States she felt a "pop" with sudden sharp pain that radiates up into neck. Pain worsens with any movement. States had some numbness and tingling in her fingers immediately after injury. Took ibuprofen without relief. - History of Current Complaint Chief Complaint: EDExtremityUpper Stated Complaint: LT SHOULDER PAIN Hx Obtained From: Patient ?: No Onset/Duration: Sudden Onset Severity Currently: Moderate Pain Intensity: 7 Character: Sharp Aggravating Factor(s): Movement Alleviating Factor(s): Nothing Associated Signs And Symptoms: Positive: Numbness/Tingling. Negative: Swelling , Redness, Bruising, Weakness - Allergies/Home Medications Allergies/Adverse Reactions: Allergies Allergy/AdvReac Type Severity Reaction Status Date / Time amoxicillin Allergy Rash Verified 02/25/18 22:29 doxycycline Allergy Vomiting Verified 02/25/18 22:29 sulfamethoxazole Allergy Shortness Verified 02/25/18 22:29 [From Bactrim] of Breath trimethoprim [From Bactrim] Allergy Shortness Verified 02/25/18 22:29 of Breath PMH/Surg Hx/FS Hx/Imm Hx Previously Healthy: Yes - Denies significant PMH - Surgical History Surgical History: None - Family History Known Family History: Positive: Cardiac Disease, Renal Disease Family History: Father of [place] in mid 50's; mother has angina - Social History Occupation: Employed Full-time Lives: With Family Alcohol Use: None Substance Use Type: None Smoking Status (MU): Never Smoked Tobacco Review of Systems All Other Systems Reviewed And Are Negative: Yes Constitutional: Negative: Fever, Chills Skin: Negative: Bruising Respiratory: Negative: Shortness Of Breath, Cough Cardiovascular: Negative: Palpitations, Chest Pain Gastrointestinal: Negative: Abdominal Pain, Vomiting, Diarrhea, Nausea Motor: Negative: Weakness Neurovascular: Negative: Decreased Sensation Musculoskeletal: Positive: Arthralgia, Decreased ROM, Other: - See HPI Neurological: Positive: Paresthesia, Numbness Is Patient Immunocompromised?: Yes Physical Exam - Summary Physical Exam Summary: GENERAL APPEARANCE: Well developed, obese, alert and cooperative. Appears mildly uncomfortable splinting her left arm in position of comfort. NECK: Neck supple, non-tender without lymphadenopathy. CARDIAC: Normal S1 and S2. No S3, S4 or murmurs. Rhythm is regular. There is no peripheral edema, cyanosis or pallor. Extremities are warm and well perfused. Capillary refill is less than 2 seconds. LUNGS: Clear to auscultation and percussion without rales, rhonchi, wheezing or diminished breath sounds. ABDOMEN: Positive bowel sounds. Soft, nondistended, nontender. No guarding or rebound. No masses or hepatosplenomegally. MUSKULOSKELETAL: ROM to left shoulder limited due to pain. ROM intact to all other extremities. Normal muscular development. Tenderness to left shoulder over the glenohumeral joint. No erythema, ecchymosis, swelling, or gross deformity. EXTREMITIES: No significant deformity or joint abnormality. No edema. Peripheral pulses intact. NEUROLOGICAL: Strength and sensation symmetric and intact throughout. SKIN: Skin normal color, texture and turgor with no lesions or eruptions. 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 States she felt a "pop" with sudden sharp pain that radiates up into neck. Pain worsens with any movement. States had some numbness and tingling in her fingers immediately after injury. Took ibuprofen without relief. Exam revealed tenderness to the anterior shoulder over the glenohumeral joint. She had diminished ROM to the shoulder due to pain. X-ray was negative for osseous injury. She was given a dose of hydrocodone-acetaminophen 5/325 1 tab PO for pain management and placed in a sling. Discussed with patient the importance that she not use the sling for more than 2 days and that she needed to do gentle ROM exercises several times a day to avoid a frozen shoulder. Recommend conservative treatment with NSAIDs and RICE. She was given noted to be out of work for days and given referral to ortho for folow up if symtpoms persisted. Warning symtoms reviewed with patient. She verbalizes understanding and agrees with POC. - Differential Dx/Diagnosis Differential Diagnosis/HQI/PQRI: Contusion, Fracture (Closed), Strain, Sprain, Other - Dislocation Provider Diagnosis: Injury of left shoulder Discharge - Sign-Out/Discharge Documenting (check all that apply): Patient Departure - Discharge Plan Condition: Stable Disposition: HOME Patient Education Materials: Shoulder Sprain (ED) Forms: *Work Release Referrals: No Primary Care Phys,NOPCP [Primary Care Provider] - Alex So MD [Medical Doctor] - 7 Days (If no improvement.) Additional Instructions: Your x-ray in the emergency room today showed no evidence of fracture or dislocation. The x-ray will be reviewed in the morning by the radiologist and we will contact you if there is any change in the treatment plan. You were given a dose of hydrocodone-acetaminophen 5 mg/325 mg 1 tablet in the emergency room to help manage the pain tonight. Do NOT drive or operate machinery with this medication. Rest the shoulder as much as possible. You may continue to use the shoulder but avoid strenuous activity or heavy lifting. Apply ice to the shoulder for 15-20 minutes at least 4 times a day. You may use the sling applied in the emergency room tonight. Do NOT use for more than 2 days to avoid the shoulder freezing up. You should take the arm out of the sling every couple of hours and do some gentle range of motion exercises as tolerated. Take naproxen 500 mg 1 tab every 12 hours with food for next 7 days. After 7 days you may take every 12 hours as needed. Follow up with orthopedic surgery in 7 days if no improvement in symptoms. Return to the emergency room if you have pain not managed with pain medication, have chest pain, shortness of breath, you develop numbness, tingling or weakness in the arm, hands, or fingers, or have any worsening of symptoms. - Billing Disposition and Condition Condition: STABLE Disposition: Home
[2018-02-26] MEDS ORDERED: HYDROcodone/ACETAMIN 5-325 MG* 1 TAB PO ONE (01:33)
[2018-02-26 01:57] VITALS: BP 125/80
== END 2018-02-26 01:53 | disposition home or self-care (01) ==
LOC: ED 22:23
DX: S49.92XA Unspecified injury of left shoulder and upper arm, initial encounter (principal); X58.XXXA Exposure to other specified factors, initial encounter; Y93.F2 Activity, caregiving, lifting; Y92.9 Unspecified place or not applicable; Y99.0 Civilian activity done for income or pay; Z88.1 Allergy status to other antibiotic agents; Z88.0 Allergy status to penicillin; Z88.2 Allergy status to sulfonamides
CPT/HCPCS: 99282

== ENCOUNTER 2019-03-13 18:04 | Emergency (ER) | payer OTHER ==
[2019-03-13] MEDS ORDERED: Bupivacaine 0.5%* 50 ML MDV VIAL INJ ONE (19:13)
--- NOTE | 2019-03-13 19:13 | ED ---
Throat Pain/Nasal Congestion - HPI Summary HPI Summary: 38-year-old female with significant past medical history of a left upper dental abscess for 2 weeks presents to emergency department today complaining of increased pain from her dental abscess. Patient states she was seen by her dentist 2 weeks ago and was placed on clindamycin and ibuprofen and told to follow-up with an oral surgeon for removal of her tooth. Patient has not seen oral surgeon yet and states her pain is getting worse. She is complaining of 10 out of 10 pain in her upper left gums consistent with her dental abscess is made worse with talking and chewing. Patient has been taking 800 mg ibuprofen every 8 hours as needed for pain. Patient has 1 day of clindamycin left. She plans to call her dentist in the morning. Patient denies fever, trouble breathing, trouble swallowing, chest pain, shortness of breath, abdominal pain, pain with urination. - History of Current Complaint Chief Complaint: EDDentalPain Time Seen by Provider: 03/13/19 18:41 Hx Obtained From: Patient Onset/Duration: Gradual Onset Severity: Severe Associated Signs And Symptoms: Negative: Dysphagia, FB Sensation, Drooling, Wheezing, Hoarseness - Allergies/Home Medications Allergies/Adverse Reactions: Allergies Allergy/AdvReac Type Severity Reaction Status Date / Time amoxicillin Allergy Rash Verified 03/13/19 18:13 doxycycline Allergy Vomiting Verified 03/13/19 18:13 sulfamethoxazole Allergy Shortness Verified 03/13/19 18:13 [From Bactrim] of Breath trimethoprim [From Bactrim] Allergy Shortness Verified 03/13/19 18:13 of Breath PMH/Surg Hx/FS Hx/Imm Hx Endocrine/Hematology History: Denies: Hx Diabetes Cardiovascular History: Reports: Hx Angina Denies: Hx Coronary Artery Disease, Hx Hypercholesterolemia, Hx Hypertension , Hx Myocardial Infarction, Hx Valvular Heart Disease Respiratory History: Denies: Hx Asthma, Hx Chronic Obstructive Pulmonary Disease (COPD) Infectious Disease History: No Infectious Disease History: Denies: Traveled Outside the [place] in Last 30 Days - Family History Known Family History: Positive: None, Cardiac Disease, Renal Disease, Other - neg: [place] Family History: Father of [place] in mid 50's; mother has angina - Social History Alcohol Use: Rare Hx Substance Use: No Substance Use Type: Reports: None Hx Tobacco Use: No Smoking Status (MU): Never Smoked Tobacco Review of Systems Constitutional: Negative Eyes: Negative Positive: Dental Pain. Negative: Epistaxis, Sore Throat, Ear Ache, Nasal Discharge Cardiovascular: Negative Respiratory: Negative Gastrointestinal: Negative Genitourinary: Negative Musculoskeletal: Negative Skin: Negative Neurological: Negative Psychological: Normal All Other Systems Reviewed And Are Negative: Yes Physical Exam - Summary Physical Exam Summary: Dentition is in poor repair throughout. There is noticeable erythema and edema to the left upper palate and gums nearing the 13th tooth. Patient has tenderness with percussion of the teeth in this region. No obvious dental abscess is appreciated which looks drainable. Patient has mild edema of the left cheek with no erythema. Patient has no change in vision or ear pain. Triage Information Reviewed: Yes Vital Signs On Initial Exam: Initial Vitals Temp Pulse Resp BP Pulse Ox 99.1 F 69 16 147/79 98 03/13/19 18:10 03/13/19 18:10 03/13/19 18:10 03/13/19 18:10 03/13/19 18:10 Vital Signs Reviewed: Yes Appearance: Positive: Well-Appearing, No Pain Distress, Well-Nourished Eyes: Positive: EOMI, KUNAL ENT: Positive: Hearing grossly normal Dental: Positive: Percussion Tenderness @ Respiratory/Lung Sounds: Positive: Clear to Auscultation, Breath Sounds Present Cardiovascular: Positive: RRR, S1, S2 Musculoskeletal: Positive: Strength/ROM Intact Neurological: Positive: Sensory/Motor Intact, Alert, Oriented to Person Place, Time, Normal Gait, Speech Normal Psychiatric: Positive: Normal AVPU Assessment: Alert Procedures - Sedation Patient Received Moderate/Deep Sedation with Procedure: No Diagnostics - Vital Signs Vital Signs Temp Pulse Resp BP Pulse Ox 03/13/19 18:10 99.1 F 69 16 147/79 98 - Laboratory Lab Statement: Any lab studies that have been ordered have been reviewed, and results considered in the medical decision making process. EENT Course/Dx - Course Course Of Treatment: site of pain. No drainage from area. Several dental caries, cavities, crowding and broken teeth throughout. Pain on palpation over mandible. No TMJ tenderness. No pain with opening and closing mouth. Poor dental hygiene and outpatient dental care. Will treat for possible dental infection/abscess based on symptoms of pain and radiation to jaw and ear. No allergies. Will treat with clindamycin, dental block with bupivacaine. Infraorbital dental block was performed using a 25-gauge needle and 4 mL of 0.5 % Bupivacaine and 1 mL of lidocaine 1%. Pt tolerated precedure. well. Pt given 5mg hydrocodone/325 acetaminophen. Patient to follow up immediately with dentist. - Differential Diagnoses Differential Diagnoses: Dental Abscess, Dental Caries, Odontogenic Pain - Diagnoses Provider Diagnoses: Dental abscess Discharge ED - Sign-Out/Discharge Documenting (check all that apply): Patient Departure - Discharge Plan Condition: Stable Disposition: HOME Prescriptions: Clindamycin Cap(NF) [Clindamycin Cap 300 mg Cap(NF)] 300 mg PO Q6H 7 Days #28 cap HYDROcodone/ACETAMIN 5-325 MG* [[place] 5-325 TAB*] 1 tab PO Q6H PRN #3 tab MDD 3 PRN Reason: Pain - Severe Patient Education Materials: Dental Abscess (ED) Referrals: No Primary Care Phys,NOPCP [Primary Care Provider] - [facility] [Outside] Additional Instructions: * You have been diagnosed with dental pain with possible infection: * Antibiotics as prescribed to you. Clindamycin 7 days. * To minimize the potential for gastrointestinal intolerance, clindamycin should be taken at the start of a meal. If you have any questions about your medication, please contact us or ask your pharmacist. * Salt water rinses several times per day will improve healing time. * Ibuprofen 600mg three times daily with meals for discomfort. * Tylenol 650mg three times daily for pain * Use these medications intermittently * Follow up with a dentist for routine care to prevent recurrence of infections. * If fever, worsening pain or swelling develops, see your PCP, dentist or come back to the Emergency Department. - Billing Disposition and Condition Condition: STABLE Disposition: Home
[2019-03-13] MEDS ORDERED: HYDROcodone/ACETAMIN 5-325 MG* 1 TAB PO ONE (19:17)
[2019-03-13] MEDS ORDERED: Bupivacaine 0.5% PF 10 ML SDV VIAL INJ ONE (20:00)
[2019-03-13 21:29] VITALS: BP 112/77
== END 2019-03-13 21:26 | disposition home or self-care (01) ==
LOC: ED 18:04
DX: K04.7 Periapical abscess without sinus (principal); E78.00 Pure hypercholesterolemia, unspecified; I10 Essential (primary) hypertension; I25.2 Old myocardial infarction; Z88.0 Allergy status to penicillin; Z88.1 Allergy status to other antibiotic agents; Z88.2 Allergy status to sulfonamides
CPT/HCPCS: 99282; J3490